=== PATIENT | female | born 1970 | race Two or more races ===

== ENCOUNTER 2016-06-15 07:28 | Emergency (ER) | payer OTHER ==
[2016-06-15 07:46] VITALS: BP 136/75; PULSE 119; TEMP 102.6; BMI 31.6
[2016-06-15] MEDS ORDERED: DEXAMETHASONE LIQUID 0.5 MG/5 ML 240 ML BULK BOTTLE PO ONE (08:48)
[2016-06-15] MEDS ORDERED: ACETAMINOPHEN 650 MG/20.3 ML ORAL SOLUTION (CUPS) PO ONE (08:48)
--- NOTE | 2016-06-15 08:48 | PDOC ---
History of Present Illness - General Chief Complaint: Pain Stated Complaint: FEVER,PAIN Time Seen by Provider: 06/15/16 08:41 History Source: Patient Exam Limitations: No Limitations - History of Present Illness Initial Comments: 06/15/16 08:35 45-year-old female presents to ED with complaints of sore throat for the past 2 days now associated fever and bilateral ear pain. Patient states also is has difficulty swallowing but denies any dehydration, abdominal pain, nausea, vomiting chest pain or shortness of breath. Patient denies recent travel, recent illness, recent sick contacts or medical history. Patient states that nothing for the fever decided come to the ER today for further evaluation. Timing/Duration: getting worse Severity: moderate Associated Symptoms: reports: fever/chills, other (sore throat) Past History - Past Medical History Allergies/Adverse Reactions: Allergies Allergy/AdvReac Type Severity Reaction Status Date / Time No Known Allergies Allergy Verified 06/15/16 07:44 Home Medications: Ambulatory Orders Amoxicillin - [Amoxicillin 500mg Capsule -] 500 mg PO BID #14 capsule 06/15/16 - Surgical History Appendectomy: Yes - Reproductive History LMP Normal: Yes Is Patient Now?: No - Psycho/Social/Smoking Cessation Hx Anxiety: No Suicidal Ideation: No Smoking History: Never smoked Have you smoked in the past 12 months: No Information on smoking cessation initiated: No Hx Alcohol Use: No Drug/Substance Use Hx: No Substance Use Type: None Patient Lives Alone: No Lives with/in: spouse/SO Review of Systems - Review of Systems Able to Perform ROS?: Yes Constitutional: Yes: Fever HEENTM: Yes: Throat Pain, Difficulty Swallowing Respiratory: No: Symptoms reported ABD/GI: No: Symptoms Reported : No: Symptoms Reported Integumentary: No: Symptoms Reported Neurological: No: Symptoms reported Hematologic/Lymphatic: No: Symptoms Reported *Physical Exam - Vital Signs Last Vital Signs Temp Pulse Resp BP Pulse Ox 102.6 F H 119 H 18 136/75 95 06/15/16 07:44 06/15/16 07:44 06/15/16 07:44 06/15/16 07:44 06/15/16 07:44 - Physical Exam General Appearance: Yes: Nourished, Appropriately Dressed. No: Apparent Distress HEENT: positive: EOMI, RIVAS, TMs Normal, Muffled/Hoarse voice (slightly garbled) , TM Erythema (3+ exudative ) Neck: positive: Lymphadenopathy (R), Lymphadenopathy (L) (upper cervical ). negative: Supple Respiratory/Chest: positive: Lungs Clear, Normal Breath Sounds. negative: Respiratory Distress, Accessory Muscle Use Cardiovascular: positive: Regular Rhythm, Tachycardia. negative: Murmur Gastrointestinal/Abdominal: positive: Soft. negative: Tenderness Musculoskeletal: negative: CVA Tenderness Extremity: positive: Normal Capillary Refill. negative: Pedal Edema Integumentary: positive: Normal Color, Warm, Moist Neurologic: positive: Motor Strength 5/5 (ambulatory) Medical Decision Making - Medical Decision Making 06/15/16 09:19 Patient with fever and sore throat. Patient on exam had 3+ exudative erythematous tonsils with difficulty swallowing. Patient ordered for Tylenol, Decadron, and rapid strep was sent. 06/15/16 10:00 rapid strep -. Pt will be discharged home on amoxicillin. 06/15/16 10:06 *DC/Admit/Observation/Transfer Diagnosis at time of Disposition: Acute tonsillitis Qualifiers: Pharyngitis/tonsillitis etiology: unspecified etiology Qualified Code(s): J03.90 - Acute tonsillitis, unspecified - Discharge Dispostion Disposition: HOME Condition at time of disposition: Good - Referrals Referrals: Yang Monson MD [Primary Care Provider] - - Patient Instructions Printed Discharge Instructions: DI for Pharyngitis/Tonsillopharyngitis -- Adult Additional Instructions: Please take antibiotics as prescribed until completed. please take Tylenol every 6-8 hours for fever. Eat soft not abrasive foods and stay well-hydrated. Return to ED if symptoms worsen
[2016-06-15] MEDS ORDERED: DEXAMETHASONE SOD PHOSPHATE 10 MG/1 ML VIAL ONE (08:54)
[2016-06-15] MEDS ORDERED: ACETAMINOPHEN 325 MG TABLET (FP) ONE (08:54)
== END 2016-06-15 10:04 | disposition home or self-care (01) ==
LOC: JER 07:28 → JERFT 07:28
DX: J03.90 Acute tonsillitis, unspecified (principal)
CPT/HCPCS: 87070; 87430; 99281-25

== ENCOUNTER 2017-02-16 10:16 | Emergency (ER) | payer OTHER ==
[2017-02-16 10:23] VITALS: TEMP 97; BMI 31.2
[2017-02-16] MEDS ORDERED: ASPIRIN 81 MG CHEWABLE TABLETS PO ONE (10:42)
--- NOTE | 2017-02-16 11:00 | PDOC ---
History of Present Illness - General Chief Complaint: Pain Stated Complaint: CHEST PAIN Time Seen by Provider: 02/16/17 10:39 History Source: Patient Exam Limitations: No Limitations - History of Present Illness Initial Comments: This is a 46 YOF with h/o left AC and glenohumeral injuries (dx on LUE MRI in 2016) who presents c/o midsternal chest pain (like pressure) up to 10/10 for the past 5 days which worsens with deep breathing and with talking. She describes it as feeling like it is in the bones. The pain radiates straight back to her back but does not radiate to the arm(s) or neck. She has associated mild nausea and mild SOB, and also has her baseline chronic mild L>R leg swelling which is unchanged lately. She denies any recent palpitations, fever, chills, cough, sore throat, abdominal pain, recent prolonged immobilization, recent surgeries or hospitalizations, OCP or estrogen use, or other symptoms. She had a milder version of this pain about 20 years ago but never had a diagnosis. She initially took Motrin with partial relief bu t has not taken this for the past few days. She expresses concern for the fact that she has had a menstrual period about once every 2 weeks for the past 4 months and feels like she has lost too much blood lately. Past History - Past Medical History Allergies/Adverse Reactions: Allergies Allergy/AdvReac Type Severity Reaction Status Date / Time No Known Allergies Allergy Verified 02/16/17 10:23 Home Medications: Ambulatory Orders NK [No Known Home Medication] 02/16/17 COPD: No - Surgical History Appendectomy: Yes - Suicide/Smoking/Psychosocial Hx Smoking History: Never smoked Have you smoked in the past 12 months: No Hx Alcohol Use: No Drug/Substance Use Hx: No Substance Use Type: None Review of Systems - Review of Systems Able to Perform ROS?: Yes Constitutional: No: Chills, Fever, Unexplained wgt Loss HEENTM: No: Nose Congestion, Throat Pain Respiratory: Yes: Shortness of Breath (mild). No: Cough Cardiac (ROS): Yes: Chest Pain. No: Palpitations ABD/GI: Yes: Nausea (mild). No: Constipated, Diarrhea, Vomiting : No: Burning, Dysuria Musculoskeletal: No: Back Pain, Neck Pain Integumentary: No: Bruising, Rash Neurological: No: Headache, Numbness, Tingling, Weakness, Dizziness Endocrine: No: Unexplained Weight Gain, Unexplained Weight Loss *Physical Exam - Vital Signs Last Vital Signs Temp Pulse Resp BP Pulse Ox 97 F L 86 18 109/73 99 02/16/17 10:22 02/16/17 10:22 02/16/17 10:22 02/16/17 10:22 02/16/17 10:22 - Physical Exam General Appearance: Yes: Nourished, Appropriately Dressed, Other (initially in no distress, but occasionally becomes mildly distressed with excessive talking which she states worseng her chest pain, splints mid-chest with hand during exacerbated pain) HEENT: positive: EOMI, Normal Voice, Hearing Grossly Normal. negative: Scleral Icterus (R), Scleral Icterus (L), Nasal Congestion Neck: positive: Trachea midline, Supple. negative: Tender, Rigid Respiratory/Chest: positive: Chest Tender (left sternal border tenderness to compression reproduces chief complaint exactly), Lungs Clear, Normal Breath Sounds. negative: Respiratory Distress, Crackles, Rhonchi, Stridor, Wheezing Cardiovascular: positive: Regular Rhythm, Regular Rate. negative: Murmur Gastrointestinal/Abdominal: positive: Normal Bowel Sounds, Tender (minimal ttp RUQ with negative Long's sign), Soft. negative: Organomegaly, Pulsatile Mass , Guarding Musculoskeletal: positive: Normal Inspection. negative: Decreased Range of Motion, Vertebral Tenderness Extremity: positive: Normal Capillary Refill, Normal Inspection, Normal Range of Motion. negative: Tender, Cyanosis Integumentary: positive: Normal Color, Dry, Warm. 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 On exam VS wnl and the patient is in minimal distress, speaking full sentences. Patient has tenderness to compression of both the superior and inferior sternum worse on the left, reproducing chief complaint exactly. Otherwise heart and lung exams wnl, patient has minimal RUQ ttp with negative Long's sign. DDX IBNLT costochondritis, PTX, cholecystitis, demand ischemia, ACS, esophageal pathology, pericarditis, PNA/bronchitis, AD, etc. Ordered is CP order set with [facility] CMP Mg coags TS cardiac panel lipase D-dimer EKG CXR 162 ASA. 02/16/17 16:36 CXR shows nothing acute. Lab work unremarkable except for slight elevated D-dimer and thus chest CTA is ordered. Chest CTA does not show cause for acute pain. It does show pulmonary nodules and the patient is counseled about needing to follow up. Return precautions are discussed and she is appropriate for DC home. *DC/Admit/Observation/Transfer Diagnosis at time of Disposition: Costochondritis, Pulmonary nodule, left - Discharge Dispostion Disposition: HOME Condition at time of disposition: Stable Admit: No - Referrals Referrals: Yang Monson MD [Primary Care Provider] - - Patient Instructions Printed Discharge Instructions: DI for Costochondritis, DI for Pulmonary Nodule Additional Instructions: You were seen in the ER for chest pain. We did blood laboratories which resulted without serious abnormalities. There was one result that was slightly elevated and made us want to do a chest CT scan, which did not show any blood clots in the lungs or other potential causes of your pain. We did find a few pulmonary nodules in your left upper lung, measuring 5-6mm, and you should follow up with your regular doctor about this finding. Please take OTC pain medications (anti-inflammatories like Motrin or Aleve are the best). Please follow up with your regular doctor early next week. Please return to the ER for any new or worsening symptoms like palpitations, severe chest pain, vomiting, passing out, fever, difficulty breathing, or other emergency symptoms. - Post Discharge Activity Forms/Work/School Notes: Back to Work
--- NOTE | 2017-02-16 11:09 | PDOC ---
Attending Attestation - Resident Resident Name: DelgadoGuerda - ED Attending Attestation I have performed the following: I have examined & evaluated the patient, The case was reviewed & discussed with the resident, I agree w/resident's findings & plan, Exceptions are as noted - HPI HPI: 02/16/17 11:08 46y F no pmhx presents with complaint of substernal chest pain radiating to the back worse with talking, deep breaths, no cough, congestion, hemopytsis, n/v, gi sypmtoms, pt does have chronic assymetric leg swelling. pt notes she does have some sob/pleuritic pain when she is walking around. on exam pt has reproducible midsternal tenderness that seems to be worse with adduction of her arms suspect msk pain but consider possible PE will send dimer for risk stratification 02/16/17 13:02 dimer elevated will obtain CTA to r/o PE - Physicial Exam PE: 02/16/17 13:03 see above - Medical Decision Making 02/16/17 13:03 see above 02/16/17 15:03 dimer elvated will ck CTA to r/o pe 02/16/17 16:10 pts CTA neg for PA or infiltrate there are some nodutles noted will have the pt fu for this will dc the pt with pmd fu supportive amangement I discussed the physical exam findings, ancillary test results and final diagnoses with the patient. I answered all of the patient's questions. The patient was satisfied with the care received and felt comfortable with the discharge plan and treatment plan. The patient will call their primary care physician within 24 hours to arrange follow-up and will return to the Emergency Department with any new, persistent or worsening symptoms. Heart Score/ECG Review - ECG Impressions Comment:: 02/16/17 13:03 Twelve-lead EKG was performed and reviewed by me. There is normal sinus rhythm with a normal rate. rate of 82 The axis is normal. qtc interval of 483
[2017-02-16] MEDS ORDERED: ASPIRIN 81 MG CHEWABLE TABLETS ONE (11:31)
[2017-02-16 11:40] LABS: BASO # 0.1 #; BASO % 0.7 % (0-2.0); EOS # 0.1 #; EOS % 1.6 % (0-4.5); MCH 28.6 pg (25.7-33.7); MCHC 32.5 g/dl (32.0-36.0); MEAN CELL VOLUME 88.1 fl (80-96); MEAN PLT VOLUME 8.4 fl (7.5-11.1); MONO # 0.6 #; NEUT # 5.8 #; NEUT % 67.8 % (42.8-82.8); PLATELET COUNT 292 K/MM3 (134-434); RDW 14.6 % (11.6-15.6); WHITE BLOOD COUNT 8.5 K/mm3 (4.0-10.0)
[2017-02-16 11:56] LABS: INR 1.12 (0.82-1.09); PROTHROMBIN TIME (PATIENT) 12.6 SEC (9.98-11.88)
[2017-02-16 12:40] LABS: ALBUMIN 3.2 g/dl (3.4-5.0); CALCIUM 8.8 mg/dL (8.5-10.1); CO2 23 mmol/L (21-32); CREATININE 0.7 mg/dL (0.55-1.02); GLUCOSE,RANDOM 87 mg/dL (74-106); MAGNESIUM 2.2 mg/dL (1.8-2.4); PHOSPHOROUS 2.8 mg/dL (2.5-4.9); SGOT/AST 15 U/L (15-37); SGPT/ALT 21 U/L (12-78)
[2017-02-16 12:41] LABS: BILIRUBIN,TOTAL 0.2 mg/dL (0.2-1.0); TOT PROT 7.9 g/dl (6.4-8.2)
[2017-02-16 12:42] LABS: ALK PHOS 80 U/L (45-117); CPK 67 IU/L (26-192)
[2017-02-16 12:56] LABS: ANION GAP 12 (8-16)
[2017-02-16 12:58] LABS: TROPONIN I < 0.02 ng/ml (0.00-0.05)
[2017-02-16] MEDS ORDERED: IBUPROFEN 400 MG TABLET (FP) PO ONE ×2 (16:11→16:46)
[2017-02-16 17:38] VITALS: BP 134/68; PULSE 74
--- NOTE | 2017-02-17 11:15 | EKG ---
Test Reason : Blood Pressure : / mmHG Vent. Rate : 082 BPM Atrial Rate : 082 BPM P-R Int : 142 ms QRS Dur : 072 ms QT Int : 414 ms P-R-T Axes : 064 037 027 degrees QTc Int : 483 ms NORMAL SINUS RHYTHM POSSIBLE LEFT ATRIAL ENLARGEMENT PROLONGED QT ABNORMAL ECG NO PREVIOUS ECGS AVAILABLE CLINICAL CORRELATION IS RECOMMENDED Confirmed by BECCA ABRAHAM MD ([id number]) on 02/17/2017 11:15:18 AM Referred By: Confirmed By:BECCA ABRAHAM MD
== END 2017-02-16 16:50 | disposition home or self-care (01) ==
LOC: JER 10:16
DX: M94.0 Chondrocostal junction syndrome [Tietze] (principal); R91.1 Solitary pulmonary nodule
CPT/HCPCS: 36415; 71020-TC; 71275-TC; 80053; 82550; 83690; 83735; 84100; 84484; 84703; 85025; 85379; 85610; 93005; 93010; 99284-25

== ENCOUNTER 2018-12-02 12:45 | Emergency (ER) | payer OTHER ==
[2018-12-02 12:57] VITALS: BP 131/85; PULSE 90; TEMP 98.4; BMI 30.1
[2018-12-02] MEDS ORDERED: morphine CARPU-JECT 2 MG/1 ML DISP.SYRIN IVPUSH ONE (13:23)
--- NOTE | 2018-12-02 13:26 | PDOC ---
*Physical Exam - Vital Signs Last Vital Signs Temp Pulse Resp BP Pulse Ox 98.4 F 90 16 131/85 100 12/02/18 12:55 12/02/18 12:55 12/02/18 12:55 12/02/18 12:55 12/02/18 12:55 ED Treatment Course - LABORATORY CBC & Chemistry Diagram: 12/02/18 17:00 12/02/18 17:00 Medical Decision Making - Medical Decision Making 12/02/18 13:26 Pt seen by Midlevel Provider under my direct supervision I was available for consultation Ancillary studies reviewed I agree with plan as outlined by Midlevel Provider 12/02/18 18:25 Discharge - Discharge Information Problems reviewed: Yes Clinical Impression/Diagnosis: Fibroid Condition: Improved Disposition: HOME - Admission No - Additional Discharge Information Prescriptions: Ibuprofen [Motrin -] 600 mg PO TID PRN #21 tablet PRN Reason: Pain Oxycodone HCl/Acetaminophen [Percocet 5-325 mg Tablet] 1 tab PO TID PRN #12 tab MDD 3 PRN Reason: Pain - Follow up/Referral Referrals: Talia Adams MD [Staff Physician] - Yang Monson MD [Primary Care Provider] - - Patient Discharge Instructions Patient Printed Discharge Instructions: DI for Uterine Fibroids Additional Instructions: Please bring copy of your lab work and ultrasound with you to your lieutenant general. Take Percocet for severe pain and Motrin 600 mg every 8 hours for moderate pain. Return to ED if you develop worsening pain, dizziness or worsening vaginal bleeding - Post Discharge Activity Work/Back to School Note: Back to Work
[2018-12-02] MEDS ORDERED: ONDANSETRON 4 MG/2 ML VIAL IVPUSH ONE (15:20)
--- NOTE | 2018-12-02 15:47 | PDOC ---
History of Present Illness - General Chief Complaint: Pain, Acute Stated Complaint: ABD PAIN Time Seen by Provider: 12/02/18 13:20 History Source: Patient Exam Limitations: No Limitations - History of Present Illness Travel History: No Initial Comments: 12/02/18 14:42 48-year-old female with history of fibroids followed by Dr. Jay presents to ED with heavy menstrual flow for the past few days accompanied with sharp cramp-like discomfort to her mid lower abdomen. Patient states for the past 6 or 7 months her menstrual cycle have lasted approximately 2 weeks and was told she needs to have a fibroid removed but requires preop clearance prior to procedure. Patient states did not take anything for the pain and decided come to the ER for management. Patient denies any dizziness, weakness but does state intermittent nausea with severe pain Timing/Duration: reports: getting worse Quality: reports: moderate Abdominal Pain Onset Location: reports: suprapubic (Mid) Pain Radiation: reports: no radiation Activities at Onset: reports: none Aggravating Factors: improves with: None Alleviating Factors: improves with: None Past History - Travel Traveled outside of the country in the last 30 days: Yes - Past Medical History Allergies/Adverse Reactions: Allergies Allergy/AdvReac Type Severity Reaction Status Date / Time No Known Allergies Allergy Verified 12/02/18 12:54 Home Medications: Ambulatory Orders Ibuprofen [Motrin -] 600 mg PO TID PRN #21 tablet 12/02/18 Oxycodone HCl/Acetaminophen [Percocet 5-325 mg Tablet] 1 tab PO TID PRN #12 tab MDD 3 12/02/18 COPD: No - Surgical History Appendectomy: Yes - Psycho Social/Smoking Cessation Hx Smoking History: Never smoked Have you smoked in the past 12 months: No Hx Alcohol Use: No Drug/Substance Use Hx: No Substance Use Type: None Patient Lives Alone: No Lives with/in: spouse/SO Review of Systems - Review of Systems Able to Perform ROS?: Yes Constitutional: No: Symptoms Reported HEENTM: No: Symptoms Reported Respiratory: No: Symptoms reported Cardiac (ROS): No: Symptoms Reported ABD/GI: Yes: Nausea, Abdominal cramping : Yes: Discharge Musculoskeletal: No: Symptoms Reported Integumentary: No: Symptoms Reported Neurological: No: Symptoms reported Hematologic/Lymphatic: No: Symptoms Reported *Physical Exam - Vital Signs Last Vital Signs Temp Pulse Resp BP Pulse Ox 98.4 F 90 16 131/85 100 12/02/18 12:55 12/02/18 12:55 12/02/18 12:55 12/02/18 12:55 12/02/18 12:55 - Physical Exam General Appearance: Yes: Nourished, Appropriately Dressed. No: Apparent Distress HEENT: positive: EOMI, RIVAS, TMs Normal, Pharynx Normal. negative: Pale Conjunctivae Neck: positive: Supple Respiratory/Chest: positive: Lungs Clear, Normal Breath Sounds. negative: Respiratory Distress, Accessory Muscle Use Cardiovascular: positive: Regular Rhythm, Regular Rate. negative: Murmur Gastrointestinal/Abdominal: positive: Normal Bowel Sounds (X4), Soft, Rebound ( Mild), Tenderness (Mid suprapubic). negative: Distended, Guarding Musculoskeletal: negative: CVA Tenderness Extremity: positive: Normal Inspection Integumentary: positive: Normal Color, Warm, Moist Neurologic: positive: Motor Strength 5/5 (Ambulatory) ED Treatment Course - LABORATORY CBC & Chemistry Diagram: 12/02/18 17:00 12/02/18 17:00 - RADIOLOGY Radiology Studies Ordered: Category Date Time Status TRANSVAGINAL ULTRASOUND US [US] Stat Ultrasound 12/02/18 13:23 Ordered Medical Decision Making - Medical Decision Making 12/02/18 14:46 Chief complaint: Heavy prolonged menstrual cycle associated with increasing lower abdominal cramping worsening in severity over the past 6 to 7 months pending fibroid removal by Dr. Adams Exam: Mid suprapubic o tenderness with heavy vaginal bleeding noted with small clots Plan: Labs, urine, ultrasound along with morphine and Zofran 12/02/18 17:44 Laboratory Tests 12/02/18 12/02/18 12/02/18 15:45 15:56 17:00 WBC 7.0 Hgb 11.1 Hct 34.6 RDW 17.0 H Neutrophils % 55.5 Urine Protein 2+ H Urine Ketones Trace H Urine Blood 3+ H Urine Nitrite Negative Urine Bilirubin Negative Urine Urobilinogen 0.2 Ur Leukocyte Esterase Trace Urine WBC (Auto) 7 Urine RBC (Auto) 1774 Urine Casts (Auto) 4 U Epithel Cells (Auto) 1.8 Urine Bacteria (Auto) 1.2 Urine HCG, Qual Negative Patient states feeling much better. Laboratory Tests 12/02/18 12/02/18 12/02/18 15:45 15:56 17:00 WBC 7.0 Hgb 11.1 Hct 34.6 RDW 17.0 H Absolute Neuts (auto) 3.9 Neutrophils % 55.5 Sodium Potassium Chloride Carbon Dioxide Anion Gap BUN Creatinine Est GFR (CKD-EPI)AfAm Est GFR (CKD-EPI)NonAf Random Glucose Calcium Total Bilirubin AST ALT Alkaline Phosphatase Total Protein Albumin Urine Protein 2+ H Urine Ketones Trace H Urine Blood 3+ H Urine Bilirubin Negative Urine Urobilinogen 0.2 Ur Leukocyte Esterase Trace Urine WBC (Auto) 7 Urine RBC (Auto) 1774 Urine HCG, Qual Negative 12/02/18 17:00 WBC Hgb Hct RDW Absolute Neuts (auto) Neutrophils % Sodium 136 Potassium 4.1 Chloride 104 Carbon Dioxide 29 Anion Gap 3 L BUN 10.6 Creatinine 0.7 Est GFR (CKD-EPI)AfAm 117.91 Est GFR (CKD-EPI)NonAf 101.74 Random Glucose 78 Calcium 9.6 Total Bilirubin 0.3 AST 21 ALT 22 Alkaline Phosphatase 91 Total Protein 8.5 H Albumin 3.7 Urine Protein Urine Ketones Urine Blood Urine Bilirubin Urine Urobilinogen Ur Leukocyte Esterase Urine WBC (Auto) Urine RBC (Auto) Urine HCG, Qual 12/02/18 17:51 Ultrasound shows 3 hypoechoic intramural uterine soft tissue lesions ranging in diameter from 2 to 3.5 cm. No obvious uterine lesion was noted in the prior ultrasound exam. A trace amount of fluid is seen within the cervical canal. No free intraperitoneal fluid is seen. A 1.5 right ovarian follicle/cyst is seen without intra-luminal debris/blood. Patient will follow up with woman to woman and be given copy of her labs along with ultrasound. Discharge - Discharge Information Problems reviewed: Yes Clinical Impression/Diagnosis: Fibroid Condition: Improved Disposition: HOME - Additional Discharge Information Prescriptions: Ibuprofen [Motrin -] 600 mg PO TID PRN #21 tablet PRN Reason: Pain Oxycodone HCl/Acetaminophen [Percocet 5-325 mg Tablet] 1 tab PO TID PRN #12 tab MDD 3 PRN Reason: Pain - Follow up/Referral Referrals: Yang Monson MD [Primary Care Provider] - Talia Adams MD [Staff Physician] - - Patient Discharge Instructions Patient Printed Discharge Instructions: DI for Uterine Fibroids Additional Instructions: Please bring copy of your lab work and ultrasound with you to your sales account associate. Take Percocet for severe pain and Motrin 600 mg every 8 hours for moderate pain. Return to ED if you develop worsening pain, dizziness or worsening vaginal bleeding - Post Discharge Activity Work/Back to School Note: Back to Work
[2018-12-02 16:21] LABS: EPI CELLS 1.8 /HPF (0-5/HPF); HYALINE CASTS 4 /lpf (0-8); URINE APPEARANCE TURBID; URINE BACTERIA 1.2 /hpf (NEGATIVE); URINE BILIRUBIN NEGATIVE (NEGATIVE); URINE COLOR DK YELLOW; URINE GLUCOSE (UA) NEGATIVE (NEGATIVE); URINE KETONE TRACE (NEGATIVE); URINE LEUK ESTERASE TRACE (NEGATIVE); URINE NITRITE NEGATIVE (NEGATIVE); URINE PROTEIN 2+ (NEGATIVE); URINE RBC 1774 /hpf (0-4); URINE UROBILINOGEN 0.2 mg/dL (0.2-1.0); URINE WBC 7 /hpf (0-5)
[2018-12-02] MEDS ORDERED: MORPHINE SULFATE 2 MG/ML VIAL ONE (16:23)
[2018-12-02] MEDS ORDERED: ONDANSETRON 4 MG/2 ML VIAL ONE (16:43)
[2018-12-02 17:16] LABS: BASO % 0.2 % (0-2.0); EOS % 2.4 % (0-4.5); HEMATOCRIT 34.6 % (32.4-45.2); HEMOGLOBIN 11.1 GM/dL (10.7-15.3); LYMPH % 34.6 % (8-40); MCH 26.6 pg (25.7-33.7); MCHC 32.2 g/dl (32.0-36.0); MEAN CELL VOLUME 82.7 fl (80-96); MEAN PLT VOLUME 8.7 fl (7.5-11.1); MONO % 7.3 % (3.8-10.2); NEUT % 55.5 % (42.8-82.8); PLATELET COUNT 378 K/MM3 (134-434); RBC 4.19 M/mm3 (3.60-5.2)
[2018-12-02 17:49] LABS: ALBUMIN 3.7 g/dl (3.4-5.0); BILIRUBIN,TOTAL 0.3 mg/dL (0.2-1); BLOOD UREA NITROGEN 10.6 mg/dL (7-18); CALCIUM 9.6 mg/dL (8.5-10.1); CREATININE 0.7 mg/dL (0.55-1.3); POTASSIUM 4.1 mmol/L (3.5-5.1); TOT PROT 8.5 g/dl (6.4-8.2)
[2018-12-02 18:05] LABS: PLATELET ESTIMATE ADEQUATE
== END 2018-12-02 18:35 | disposition home or self-care (01) ==
LOC: JER 12:45
PROC: 3E033NZ Introduction of Analgesics, Hypnotics, Sedatives into Peripheral Vein, Percutaneous Approach (ICD-10-PCS; principal; 2018-12-02)
PROC: 3E033GC Introduction of Other Therapeutic Substance into Peripheral Vein, Percutaneous Approach (ICD-10-PCS; 2018-12-02)
DX: D25.9 Leiomyoma of uterus, unspecified (principal)
CPT/HCPCS: 36415; 76830-TC; 80053; 81003; 84703; 85025; 99282-25

== ENCOUNTER 2020-11-08 09:08 | Emergency (ER) | payer OTHER ==
[2020-11-08 09:13] VITALS: BP 142/88; PULSE 78; TEMP 98.2; BMI 33.3
[2020-11-08] MEDS ORDERED: METHOCARBAMOL 500 MG TABLET PO ONE (10:12)
[2020-11-08] MEDS ORDERED: LIDOCAINE 5% TOPICAL PATCH TP ONE (10:12)
[2020-11-08] MEDS ORDERED: KETOROLAC TROMETHAMINE 30 MG/1 ML VIAL IM ONE (10:12)
[2020-11-08] MEDS ORDERED: LIDOCAINE 5% TOPICAL PATCH ONE (10:18)
[2020-11-08] MEDS ORDERED: METHOCARBAMOL 500 MG TABLET ONE (10:18)
[2020-11-08] MEDS ORDERED: KETOROLAC TROMETHAMINE 30 MG/1 ML VIAL ONE (10:19)
== END 2020-11-08 10:49 | disposition home or self-care (01) ==
LOC: JERFT 09:08
PROC: 3E0233Z Introduction of Anti-inflammatory into Muscle, Percutaneous Approach (ICD-10-PCS; principal; 2020-11-08)
DX: M62.830 Muscle spasm of back (principal)
CPT/HCPCS: 99284-25

== ENCOUNTER 2021-04-18 08:47 | Emergency (ER) | payer OTHER ==
[2021-04-18 08:56] VITALS: BMI 32.3
[2021-04-18] MEDS ORDERED: KETOROLAC TROMETHAMINE 30 MG/1 ML VIAL IM ONE (09:11)
[2021-04-18] MEDS ORDERED: KETOROLAC TROMETHAMINE 30 MG/1 ML VIAL ONE (09:16)
[2021-04-18 11:08] LABS: HEMATOCRIT 31.6 % (32.4-45.2); HEMOGLOBIN 9.8 GM/dL (10.7-15.3); MCHC 31.2 g/dl (32.0-36.0); MEAN CELL VOLUME 73.7 fl (80-96); MEAN PLT VOLUME 8.2 fl (7.5-11.1); PLATELET COUNT 330 10^3/uL (134-434); RBC 4.28 M/mm3 (3.60-5.2); RDW 19.7 % (11.6-15.6)
[2021-04-18 11:25] LABS: ALBUMIN 3.1 g/dl (3.4-5.0); CALCIUM 9.4 mg/dL (8.5-10.1)
[2021-04-18] MEDS ORDERED: ACETAMINOPHEN 1000 MG/100 ML BAG IVPB ONE (11:25)
[2021-04-18] MEDS ORDERED: SODIUM CHLORIDE 1,000 ML IV STA (11:26)
[2021-04-18 11:28] LABS: CREATININE 0.7 mg/dL (0.55-1.3)
[2021-04-18 11:30] LABS: BILIRUBIN,TOTAL 0.3 mg/dL (0.2-1); TOT PROT 8.2 g/dl (6.4-8.2)
[2021-04-18] MEDS ORDERED: ACETAMINOPHEN INJECTION 100 ML IVPB ONE (11:45)
[2021-04-18 11:54] LABS: ANISOCYTOSIS 1+; MACROCYTOSIS 1+; OVALOCYTE 1+
[2021-04-18 11:58] LABS: PLATELET ESTIMATE ADEQUATE
[2021-04-18] MEDS ORDERED: DEXAMETHASONE SOD PHOSPHATE 10 MG/1 ML VIAL IVPUSH ONE (12:43)
[2021-04-18] MEDS ORDERED: CLINDAMYCIN 900 MG PREMIX IVPB 900 MG/50 ML BAG IVPB ONE ×2 (12:54→13:13)
[2021-04-18] MEDS ORDERED: DEXAMETHASONE SOD PHOSPHATE 10 MG/1 ML VIAL ONE (13:12)
[2021-04-18 14:14] VITALS: TEMP 98.1
[2021-04-18 15:37] VITALS: BP 137/88; PULSE 96
[2021-04-18 16:58] LABS: EPI CELLS >36 /uL (0-25.1); HYALINE CASTS 12 /uL (0-3.1); PH,URINE 5.5 (5.0-8.0); URINE APPEARANCE CLEAR; URINE BACTERIA 27 /uL (0-1359); URINE BILIRUBIN NEGATIVE (NEGATIVE); URINE COLOR YELLOW; URINE GLUCOSE (UA) NEGATIVE (NEGATIVE); URINE KETONE 3+ (NEGATIVE); URINE LEUK ESTERASE NEGATIVE (NEGATIVE); URINE NITRITE NEGATIVE (NEGATIVE); URINE PROTEIN 1+ (NEGATIVE); URINE RBC 13 /uL (0-23.9); URINE WBC 38 /uL (0-25.8)
[2021-04-19 08:07] LABS: SARS-CoV-2 NAA Not Detected (Not Detected)
== END 2021-04-18 15:57 | disposition home or self-care (01) ==
LOC: JER 08:47
PROC: 3E0333Z Introduction of Anti-inflammatory into Peripheral Vein, Percutaneous Approach (ICD-10-PCS; principal; 2021-04-18)
PROC: 3E03329 Introduction of Other Anti-infective into Peripheral Vein, Percutaneous Approach (ICD-10-PCS; 2021-04-18)
PROC: 3E033GC Introduction of Other Therapeutic Substance into Peripheral Vein, Percutaneous Approach (ICD-10-PCS; 2021-04-18)
PROC: 3E0233Z Introduction of Anti-inflammatory into Muscle, Percutaneous Approach (ICD-10-PCS; 2021-04-18)
PROC: 3E0337Z Introduction of Electrolytic and Water Balance Substance into Peripheral Vein, Percutaneous Approach (ICD-10-PCS; 2021-04-18)
DX: J03.90 Acute tonsillitis, unspecified (principal)
CPT/HCPCS: 36415; 70491-TC; 71046-TC-FY; 80053; 81003; 83605; 85025; 87070; 87086; 87651; 87804; 93005; 93010; 93308; 99285-25; C9803; J1100; Q9967; U0003; U0005

== ENCOUNTER 2021-11-09 13:27 | Emergency (ER) | payer OTHER ==
[2021-11-09 13:43] VITALS: BP 185/79; PULSE 87; RESP 17; TEMP 98.2; BMI 34.2
== END 2021-11-09 15:10 | disposition home or self-care (01) ==
LOC: JERFT 13:27 → JER 13:27 → JERFT 15:10
DX: H60.502 Unspecified acute noninfective otitis externa, left ear (principal)
CPT/HCPCS: 99283-25